=== PATIENT | male | born 1985 | race Caucasian/White ===

== ENCOUNTER 2022-06-11 10:20 | Emergency (ER) | payer OTHER ==
[~2022-06-11] VITALS: Ht 180.3 cm; Wt 68.0 kg
[2022-06-11 11:10] LABS: BASOPHILS % (AUTO) 0.3 % (0.0-5.0); EOSINOPHILS % (AUTO) 0.2 % (0.0-8.0); HEMATOCRIT 37.9 % (42-54); LYMPHOCYTES % (AUTO) 15.6 % (21.0-51.0); MEAN CORPUSCULAR HEMOGLOBIN 30.3 pg (27.0-33.0); MEAN CORPUSCULAR HGB CONC 34.6 g/dL (32.0-36.0); MEAN CORPUSCULAR VOLUME 87.5 fL (79-99); MONOCYTES % (AUTO) 6.4 % (3.0-13.0); NEUTROPHILS % (AUTO) 77.2 % (40.0-77.0); PLATELET COUNT (AUTO) 282 K/uL (130-400); RED BLOOD CELL COUNT(AUTO) 4.33 MIL/uL (4.50-6.20); RED CELL DISTRIBUTION WIDTH 11.9 % (11.0-15.5); WHITE BLOOD COUNT (AUTO) 14.6 K/uL (4.8-10.8)
[2022-06-11 11:20] LABS: INR 1.03 (0.85-1.15); PROTHROMBIN TIME 11.2 SEC (9.6-11.6)
[2022-06-11 11:22] LABS: PARTIAL THROMBOPLASTIN TIME 28.1 SEC (26.3-35.5)
[2022-06-11 11:25] LABS: ALBUMIN 3.8 g/dL (3.5-5.0); CREATININE 0.8 mg/dL (0.5-1.5); POTASSIUM 4.2 mmol/L (3.5-5.1)
[2022-06-11] MEDS ORDERED: MORPHINE 4 MG SYG IVP ONE (11:30)
[2022-06-11] MEDS ORDERED: ONDANSETRON 4MG INJ IVP ONE ×2 (11:30→22:30)
[2022-06-11] MEDS ORDERED: TETANUS/DIPHTHERIA TOXOID [ADULT] 0.5 ML VIAL IM ONE (11:30)
[2022-06-11] MEDS ORDERED: 0.9%NACL 1000ML 1,000 ML IV ONE (11:30)
[2022-06-11] MEDS ORDERED: HYDROMORPHONE 0.5 MG SYG (0.5MG/0.5ML) IVP ONE ×3 (14:30→22:30)
[2022-06-11] MEDS ORDERED: CEFTRIAXONE 1G VIAL IVP ONE (15:00)
[2022-06-11 15:42] LABS: BASOPHILS % (AUTO) 0.4 % (0.0-5.0); EOSINOPHILS % (AUTO) 0.1 % (0.0-8.0); LYMPHOCYTES % (AUTO) 16.5 % (21.0-51.0); MEAN CORPUSCULAR HEMOGLOBIN 30.2 pg (27.0-33.0); MEAN CORPUSCULAR HGB CONC 34.4 g/dL (32.0-36.0); MEAN CORPUSCULAR VOLUME 87.8 fL (79-99); MONOCYTES % (AUTO) 6.7 % (3.0-13.0); NEUTROPHILS % (AUTO) 75.8 % (40.0-77.0); PLATELET COUNT (AUTO) 277 K/uL (130-400); WHITE BLOOD COUNT (AUTO) 16.8 K/uL (4.8-10.8)
[2022-06-11] MEDS ORDERED: TRANEXAMIC ACID 1000MG/10ML IV STA (21:17)
[2022-06-11 21:50] LABS: HEMATOCRIT 31.8 % (42-54)
[2022-06-11] MEDS ORDERED: ONDANSETRON 4MG INJ ONE (21:59)
[2022-06-12 00:37] LABS: HEMATOCRIT 30.4 % (42-54)
[2022-06-12] MEDS ORDERED: LACTATED RINGERS 1000ML 1,000 ML IV SCH (02:00)
[2022-06-12] MEDS ORDERED: MORPHINE 2 MG SYG IVP STA (07:44)
[2022-06-12 08:06] VITALS: BP 120/53
== END 2022-06-12 08:12 | disposition home or self-care (01) ==
LOC: EEVIPCON 10:20 → EDH 10:20
DX: S02.609A Fracture of mandible, unspecified, initial encounter for closed fracture (principal); S09.8XXA Other specified injuries of head, initial encounter; M25.522 Pain in left elbow; Z20.822 Contact with and (suspected) exposure to COVID-19; Y04.2XXA Assault by strike against or bumped into by another person, initial encounter; Y93.89 Activity, other specified; Y92.89 Other specified places as the place of occurrence of the external cause; Y99.8 Other external cause status
CPT/HCPCS: 99285; 70450; 96375; 96374; 87635; 96361 ×2; 80053; 85025 ×2; 85610; 85730; 86850; 86900; 86901; 36415; 90714; 73080; 70486; 96376 ×2; 90471; 85018 ×2; 85014 ×2; C9803; J3490; J7030; J0696; J2405 ×2; J2270; J1170 ×3